=== PATIENT | male | born 1960 | race Caucasian/White ===

== ENCOUNTER → 2017-06-05 | Emergency (ER) | payer OTHER ==
[~2017-06-05] VITALS: Ht 160 cm; Wt 72.6 kg
[~2017-06-05] MED LIST: ALBUTEROL17 G1; KETO10TA2 PO; ORPH100T PO; PERCOCET 5/3251 TAB; SYNTHROID50 MCG; TRAMADOL HCL50 MG
== END | disposition home or self-care (01) ==
LOC: ER 08:31
DX: N20.0 Calculus of kidney (principal)

== ENCOUNTER 2017-10-09 15:27 | Emergency (ER) | payer OTHER ==
[~2017-10-09] VITALS: Ht 160 cm; Wt 72.1 kg
== END 2017-10-09 18:26 | disposition home or self-care (01) ==
LOC: ER 15:27
DX: N20.0 Calculus of kidney (principal); N20.1 Calculus of ureter; K57.90 Diverticulosis of intestine, part unspecified, without perforation or abscess without bleeding

== ENCOUNTER 2022-04-10 15:55 | Emergency (ER) | payer OTHER ==
[~2022-04-10] VITALS: Ht 160 cm; Wt 73.5 kg
[2022-04-10] MEDS ORDERED: NABUMETONE750 MG PO (22:35)
== END 2022-04-11 00:27 | disposition home or self-care (01) ==
LOC: ER 15:55
DX: N23 Unspecified renal colic (principal); Z91.013 Allergy to seafood

== ENCOUNTER 2022-09-12 08:49 | Emergency (ER) | payer OTHER ==
[~2022-09-12] VITALS: Ht 160 cm; Wt 74.8 kg
[~2022-09-12 08:49] MED LIST changes: +NABUMETONE750 MG PO
[2022-09-12] MEDS ORDERED: LIPITOR20 MG PO (09:00)
[2022-09-12] MEDS ORDERED: SINGULAIR4 MG PO (09:00)
[2022-09-12] MEDS ORDERED: TAMS0.4C PO (11:46)
[2022-09-12] MEDS ORDERED: IBU600 MG PO (11:46)
== END 2022-09-12 12:21 | disposition home or self-care (01) ==
LOC: ER 08:49
DX: R20.0 Anesthesia of skin (principal); I10 Essential (primary) hypertension; E03.9 Hypothyroidism, unspecified; Z88.8 Allergy status to other drugs, medicaments and biological substances; Z91.013 Allergy to seafood